=== PATIENT | male | born 1965 | race Caucasian/White ===

== ENCOUNTER 2020-04-11 11:08 | Outpatient (CLI) | payer BC, SELFPAY ==
--- NOTE | ~2020-04-11 | XR_ITS ---
EXAMINATION: XR chest 2V 04/11/2020 11:31 INDICATION: Asbestos exposure PROCEDURE: 2 view chest COMPARISON: No prior studies for comparison. FINDINGS: The lungs are clear. The cardiomediastinal silhouette is within normal limits. There are no pleural effusions. There is no pneumothorax suspected. IMPRESSION: 1: NO ACUTE CARDIOPULMONARY DISEASE. Reviewed, dictated and finalized at location A. LOADER HELPER
== END 2020-04-11 11:09 | disposition home or self-care (01) ==
PROVIDERS: PCP Family Medicine; Visit Provider Family Medicine
DX: Z77.090 Contact with and (suspected) exposure to asbestos (principal)
CPT/HCPCS: 71046

== ENCOUNTER 2021-04-10 10:08 | Outpatient (CLI) | payer BC, SELFPAY ==
--- NOTE | 2021-04-10 10:25 | ECG_ITS ---
Measurements Intervals [place] Rate: 64 P: 63 DE: 158 QRS: 43 QRSD: 113 T: 20 QT: 373 QTc: 387 Interpretive Statements SINUS RHYTHM INTRAVENTRICULAR CONDUCTION DELAY BORDERLINE ECG Electronically Signed On 04-10-2021 12:02:14 AGENT PRODUCER by Silvestre Day D.O.
== END 2021-04-10 10:09 | disposition home or self-care (01) ==
LOC: ANHLAB 10:10
PROVIDERS: PCP Family Medicine; Visit Provider Family Medicine
DX: I10 Essential (primary) hypertension (principal)
CPT/HCPCS: 93005

== ENCOUNTER 2021-08-02 08:24 | Outpatient (CLI) | payer BC, SELFPAY ==
--- NOTE | ~2021-08-02 | XR_ITS ---
EXAMINATION: XR chest 2V DATE: 08/02/2021 10:47 INDICATION: Shortness of breath. TECHNIQUE: Frontal and lateral views of the chest were obtained. COMPARISON: Chest 2 views 04/11/2020 FINDINGS: There is mild atelectasis in right lower lung zone. No pleural effusion or pneumothorax. Th e heart size is normal. IMPRESSION: 1. Mild atelectasis in right lower lung zone. Reviewed, dictated and finalized at location A.
--- NOTE | 2021-08-02 08:41 | ECHO_ITS ---
Patient Info Name: Murali Thompson Age: 56 years : 1965 Gender: Male Ht: 71 in Wt: 220 lbs BSA: 2.26 m2 HR: 74 bpm BP: 159 / 97 mmHg Technical Quality: Good Exam Date: 08/02/2021 9:07 AM Exam Location: [facility] Patient Status: Outpatient Admit Date: 08/02/2021 Staff Ordering Physician: Tristan Avalos MD Display Screen Fabricator: Shaneka Chang RDCS Attending Provider: Tristan Avalos MD Referring Physician: Robbie JIN; Exam Type: CA echo doppler color flow Study Info Indications - dyspnea Complete two-dimensional, color flow and Doppler transthoracic echocardiogram is performed. Summary 1. Complete two-dimensional, color flow and Doppler transthoracic echocardiogram is performed. 2. Left ventricular chamber dimension is normal. 3. Left ventricular systolic function is normal, estimated at 55-60%. 4. The left ventricular diastolic function is normal. 5. E/e' 8 is minimally elevated. 6. There is mild mitral valve regurgitation. 7. There is trace tricuspid valve regurgitation. 8. Mild pulmonary hypertension, estimated pulmonary arterial systolic pressure is 41 mmHg. Left Ventricle E/e' 8 is minimally elevated. Left ventricular chamber dimension is normal. Left ventricular systolic function is normal, estimated at 55-60%. The left ventricular diastolic function is normal. Right Ventricle Moderator band is normal variant. Right ventricular systolic function is normal and with normal TAPSE 2.4 cm. Right ventricular chamber dimension is normal. Left Atria Left atrial chamber dimension is normal. Right Atria Right atrial chamber dimension is normal. Aortic Valve The aortic valve is trileaflet. There is no aortic valve stenosis. There is no aortic valve regurgitation. Pulmonic Valve There is no pulmonic regurgitation. Mitral Valve There is no mitral valve stenosis. There is mild mitral valve regurgitation. Tricuspid Valve There is trace tricuspid valve regurgitation. Mild pulmonary hypertension, estimated pulmonary arterial systolic pressure is 41 mmHg. Pericardium/Pleural There is no pericardial effusion. Inferior Vena Cava Normal inferior vena cava with >50% collapse upon inspiration consistent with normal right atrial pressure, 5 mmHg. Aorta The aortic root size at the sinus of Valsalva is normal. Left Ventricular Outflow Tract Name Value Normal LVOT 2D LVOT Diameter 2.1 cm LVOT Doppler LVOT Peak Gradient 4 mmHg LVOT Mean Gradient 2 mmHg LVOT VTI 19 cm LVOT VTI/AV VTI Ratio 0.8 LVOT Stroke Volume 65 ml LVOT CO 14.4 l/min LVOT CI 6.4 l/min/m2 Pulmonic Valve Name Value Normal PV Doppler
--- NOTE | 2021-08-02 08:41 | EST_ITS ---
Patient Info Name: Murali Thompson Age: 56 years : 1965 Gender: Male Ht: 71 in Wt: 220 lbs BSA: 2.26 m2 Exam Date: 08/02/2021 10:12 AM Exam Location: [facility] Stress Patient Status: Outpatient Admit Date: 08/02/2021 Staff Ordering Physician: Tristan Avalos MD Attending Provider: Tristan Avalos MD Exercise Technologist: Radha La RDCS Exercise Physician: Silvestre Day DO Exam Type: CA stress test treadmill Study Info Indications R06.00 - Dyspnea, unspecified A treadmill exercise stress test was performed. Summary 1. 1. Negative Jayjay exercise stress test for ischemic ST changes by ECG criteria. 2. 2. Good functional capacity, achieving 12 METs of workload. 3. 3. Appropriate HR response to exercise. 4. 4. Appropriate HR recovery at 1 minute post exercise. 5. 5. No imaging with stress testing. 6. 6. Patient informed of the above results. Protocol: Jayjay Stress ECG Details Stage: REST Duration (min): 5 min : 5 sec Speed (mph): 0.0 Grade (%): 0 HR (bpm): 64 SBP (mmHg): 134 DBP (mmHg): 84 METS: --- Stage: REST Duration (min): 9 min : 29 sec Speed (mph): 0.0 Grade (%): 0 HR (bpm): 75 SBP (mmHg): 134 DBP (mmHg): 84 METS: --- Stage: STAGE 1 Duration (min): 1 min : 0 sec Speed (mph): 1.7 Grade (%): 10 HR (bpm): 96 SBP (mmHg): 134 DBP (mmHg): 84 METS: --- Stage: STAGE 1 Duration (min): 2 min : 0 sec Speed (mph): 1.7 Grade (%): 10 HR (bpm): 95 SBP (mmHg): 134 DBP (mmHg): 84 METS: --- Stage: STAGE 1 Duration (min): 3 min : 0 sec Speed (mph): 1.7 Grade (%): 10 HR (bpm): 99 SBP (mmHg): 181 DBP (mmHg): 70 METS: --- Stage: STAGE 2 Duration (min): 1 min : 0 sec Speed (mph): 2.5 Grade (%): 12 HR (bpm): 107 SBP (mmHg): 181 DBP (mmHg): 70 METS: --- Stage: STAGE 2 Duration (min): 2 min : 0 sec Speed (mph): 2.5 Grade (%): 12 HR (bpm): 110 SBP (mmHg): 160 DBP (mmHg): 84 METS: --- Stage: STAGE 2 Duration (min): 3 min : 0 sec Speed (mph): 2.5 Grade (%): 12 HR (bpm): 110 SBP (mmHg): 160 DBP (mmHg): 84 METS: --- Stage: STAGE 3 Duration (min): 1 min : 0 sec Speed (mph): 3.4 Grade (%): 14 HR (bpm): 123 SBP (mmHg): 156 DBP (mmHg): 81 METS: --- Stage: STAGE 3 Duration (min): 2 min : 0 sec Speed (mph): 3.4 Grade (%): 14 HR (bpm): 127 SBP (mmHg): 156 DBP (mmHg): 81 METS: --- Stage: STAGE 3 Duration (min): 3 min : 0 sec Speed (mph): 3.4 Grade (%): 14 HR (bpm): 132 SBP (mmHg): 179 DBP (mmHg): 79 METS: --- Stage: STAGE 4 Duration (min): 1 min : 0 sec Speed (mph): 4.2 Grade (%): 16 HR (bpm): 146 SBP (mmHg): 179 DBP (mmHg): 79 METS: --- Stage: STAGE 4 Duration (min): 1 min : 0 sec Speed (mph):
== END 2021-08-02 08:25 | disposition home or self-care (01) ==
PROVIDERS: PCP Family Medicine; Visit Provider Family Medicine
DX: R06.02 Shortness of breath (principal); R06.00 Dyspnea, unspecified; J98.11 Atelectasis; I08.3 Combined rheumatic disorders of mitral, aortic and tricuspid valves
CPT/HCPCS: 71046; 93017; 93306

== ENCOUNTER 2021-08-12 08:12 | Outpatient (CLI) | payer BC, SELFPAY ==
--- NOTE | 2021-08-12 15:01 | WPDPFTINT ---
PFT Procedure Performed PFT Procedure Performed Spirometry with Pre/Post Bronchodilator Plethysmography (Lung Vol) Diffusing Cap (DLCO) Flow Vol Loop PFT Interpretation This is a pulmonary function test with pre and post-bronchodilator spirometry, plethysmography and diffusing capacity. The test was performed and results interpreted in accordance with the 2019 and 2005 ATS/ERS Task Force guidelines respectively using the Global Lung Function Initiative-2012 reference equations. Patient demonstrated good effort and cooperation. Reproducibility criteria were met. The quality of the pre bronchodilator spirometry maneuver was Grade A and post bronchodilator spirometry maneuver was Grade A. Findings: Spirometry: The contour the inspiratory and expiratory flow tracing are normal. The pre bronchodilator FVC is 3.18 L, 66% predicted. The pre bronchodilator FEV1 is 2.51 L, 67% predicted. The pre bronchodilator FEV1: FVC ratio 79%. The post bronchodilator FVC is 3.16 L, representing 1% decrease. The post bronchodilator FEV1 is 2.61 L, representing a 4% increase. The post bronchodilator FEV1: FVC ratio is 83%. Plethysmography: The total lung capacity is 5.07, 72% predicted. The functional residual capacity is 2.47 L, 68% predicted. The residual volume is 1.89 L, 87% predicted. Diffusing capacity: The diffusing capacity unadjusted for hemoglobin and carboxyhemoglobin is 27.2, 93% predicted. The diffusing capacity adjusted for alveolar volume is 6.02, 138% predicted. Impression: There is a moderate restrictive ventilatory abnormality. The spirometry is normal without evidence of an obstructive abnormality. There is no significant improvement after inhaling a single dose of albuterol. The diffusing capacity unadjusted for hemoglobin and carboxyhemoglobin is normal and increased when adjusted for alveolar volume. There are no prior studies for comparison
== END 2021-08-12 08:13 | disposition home or self-care (01) ==
LOC: ANHPFT 08:13
PROVIDERS: PCP Family Medicine; Visit Provider Family Medicine
DX: R06.02 Shortness of breath (principal)
CPT/HCPCS: 94060; 94726; 94729

== ENCOUNTER 2021-10-18 12:34 | Outpatient (CLI) | payer BC, SELFPAY ==
--- NOTE | ~2021-10-18 | CT_ITS ---
EXAMINATION: CT diagnostic chest wo con DATE: 10/18/2021 13:02 INDICATION: R06.00 - Dyspnea, unspecified TECHNIQUE: Computed tomography (CT) of the chest was performed without intravenous contrast. Addition al 3D reconstructions utilizing coronal maximum intensity projection (MIP) were performed. Automated exposure control and iterative reconstruction technique were employed. The dose-length product was 31 5.67 mGy-cm. COMPARISON: None FINDINGS: Right basilar discoid atelectasis in the right middle and lower lobes. Lungs are otherwise clear. No pneumonia, pulmonary edema, pleural effusion or pneumothorax. Heart size is normal. No pericardial ef fusion. Thoracic aorta is normal in caliber. No pathologically enlarged thoracic lymphadenopathy. Mil d bilateral gynecomastia. A few scattered hepatic and splenic calcific lesions consistent with old gr anulomatous disease. Couple low-attenuation cysts in the left hepatic lobe. Dependently layering slud ge in the otherwise normal gallbladder. 18 degree upper thoracic levoscoliosis. Single sclerotic lesi on at T5. IMPRESSION: 1. Mild right basilar atelectasis. No acute cardiopulmonary disease. 2. Single sclerotic lesion at T5 which in the absence of known history of malignancy most likely repr esents a bone island. If there has been prior malignancy would consider bone scan for further evaluat ion. Reviewed, dictated and finalized at location B. IMPRESSION: 1. Mild right basilar atelectasis. No acute cardiopulmonary disease. 2. Single sclerotic lesion at T5 which in the absence of known history of malig laura most likely represents a bone island. If there has been prior malignancy would consider bone scan for further evaluation.
== END 2021-10-18 12:35 | disposition home or self-care (01) ==
PROVIDERS: PCP Family Medicine; Visit Provider Internal Medicine Pulmonary Disease
DX: R06.00 Dyspnea, unspecified (principal); J98.11 Atelectasis; M89.9 Disorder of bone, unspecified
CPT/HCPCS: 71250

== ENCOUNTER 2021-10-18 13:08 | Outpatient (CLI) | payer BC, SELFPAY ==
[2021-10-18 13:53] LABS: Basophils Percent Auto 0.7 % (0.2-1.2); Eosinophils Absolute Auto 0.1 K/mm3 (0-0.3); Eosinophils Percent Auto 2.1 % (0-4.4); Hematocrit 52.2 % (42.0-52.0); Hemoglobin 16.8 g/dL (14.0-18.0); Immature Granulocyte Absolute 0.02 K/mm3 (0.00-0.031); Immature Granulocyte Percent A 0.4 % (0-0.5); Lymphocytes Absolute Auto 1.58 K/mm3 (0.9-3.2); Lymphocytes Percent Auto 27.7 % (18.3-44.2); Mean Corpuscular HGB Conc 32.2 g/dl (32-36); Mean Corpuscular Hemoglobin 30.2 pg (26-34); Mean Corpuscular Volume 93.7 fl (80-100); Mean Platelet Volume 11.2 fl (7.4-10.4); Monocytes Absolute Auto 0.5 K/mm3 (0.1-0.6); Monocytes Percent Auto 9.5 % (2.6-8.5); Neutrophils Absolute Auto 3.4 K/mm3 (1.3-6.7); Neutrophils Percent Auto 59.6 % (45.5-73.1); Platelet Count Result 230 k/mm3 (150-375); Red Blood Count 5.57 M/mm3 (4.6-6.20); Red Cell Distribution Width 13.5 % (11.5-14.5); White Blood Count 5.7 K/mm3 (4.5-10.0)
== END 2021-10-18 13:09 | disposition home or self-care (01) ==
LOC: ANHLAB 13:09
PROVIDERS: PCP Family Medicine; Visit Provider Internal Medicine Pulmonary Disease
DX: R06.00 Dyspnea, unspecified (principal)
CPT/HCPCS: 36415; 85025

== ENCOUNTER 2021-11-01 08:33 | Outpatient (CLI) | payer BC, SELFPAY ==
--- NOTE | ~2021-11-01 | XR_ITS ---
XR sniff test without CXR2V 11/01/2021 08:59 Indication: Shortness of breath. Right diaphragm weakness. Procedure: Fluoroscopy of the diaphragm was performed during repetitive inspiration Comparison: Chest dated 08/02/2021 Findings: There is paradoxical upward motion of the right diaphragm during inspiration, consistent wi th diaphragmatic paralysis. Impression: 1: Abnormal paradoxical motion of the right diaphragm, consistent with diaphragmatic paralysis. Reviewed, dictated and finalized at location A. Impression: 1: Abnormal paradoxical motion of the right diaphragm, consistent with diaphrag matic paralysis.
== END 2021-11-01 08:34 | disposition home or self-care (01) ==
PROVIDERS: PCP Family Medicine; Visit Provider Internal Medicine Pulmonary Disease
DX: R06.02 Shortness of breath (principal); R91.8 Other nonspecific abnormal finding of lung field
CPT/HCPCS: 76000

== ENCOUNTER 2021-11-19 09:28 | Outpatient (CLI) | payer BC, SELFPAY ==
--- NOTE | ~2021-11-19 | MR_ITS ---
EXAMINATION: MR cervical spine wo/w con DATE: 11/19/2021 10:26 INDICATION: Cervical radiculopathy. Mild compression at C3-C5. TECHNIQUE: Magnetic resonance imaging (MRI) of the cervical spine was performed without and with 20 m L Multihance intravenous contrast. Sequences included axial PD-weighted FSE, sagittal T1-weighted SE, sagittal PD-weighted FS FSE, axial T1-weighted SE, coronal PD-weighted FS FSE, coronal T1-weighted S E, axial T1-weighted FS SE. Postcontrast sequences included axial T1-weighted FS SE, sagittal T1-wegi hted FS SE, and sagittal STIR FSE. COMPARISON: None FINDINGS: Draining of the normal cervical lordosis. Vertebral body heights are normal. Moderate disc height lo ss at C4-C5 and C5-C6. Mild disc height loss at C3-C4 and C6-C7. Degenerative fibrofatty endplate michela nges at C3-C4. Marrow signal is otherwise normal. On the sagittal images there is an annular fissure with small central disc extrusion resulting in mild central canal stenosis at T2-T3. Disc bulges and annular fissures at C3-C4 through C7-T1 which will be further detailed below. Cord signal intensity i s normal. Cervical soft tissues are unremarkable. No abnormally enhancing lesions identified. The fol lowing disc levels are specifically discussed: C2-C3: The disc does not extend beyond the endplate margin. There is mild left uncovertebral joint os teoarthritis. There is moderate bilateral facet joint osteoarthritis. There is no neural foraminal st enosis. There is no central canal stenosis. C3-C4: Left-sided predominant posterior disc osteophyte complex which indents the left ventral surfac e of the cord. There is right and severe left uncovertebral joint osteoarthritis. There is moderate r ight and mild to moderate left facet joint osteoarthritis. There is mild right and moderate left neur al foraminal stenosis. There is mild central canal stenosis. C4-C5: Left-sided predominant posterior disc osteophyte complex which indents the left ventral surfac e of the cord. There is severe bilateral uncovertebral joint osteoarthritis. There is mild right and moderate left facet joint osteoarthritis. There is mild right and moderate left neural foraminal sten osis. There is mild central canal stenosis. C5-C6: Left side predominant posterior disc osteophyte complex slightly flattens the ventral surface of the cord. There is moderate right and severe left uncovertebral joint osteoarthritis. There is mil d bilateral facet joint osteoarthritis. There is mild right and mild to moderate left neural foramina l stenosis. There is mild central canal stenosis. C6-C7: Disc is bulging with annular fissure and small right paracentral disc extrusion with disc mate rial extending 3 mm cephalad to the level of the inferior endplate of C6. There is moderate right and severe left uncovertebral joint osteoarthritis. There is mild bilateral facet joint osteoarthritis. There is mild right and moderate to severe left neural foraminal stenosis. There is mild central abigail l stenosis. C7-T1: Disc is mildly bulging with superimposed annular fissure and right paracentral to foraminal zo ne disc protrusion. There is mild bilateral uncovertebral joint osteoarthritis. There is mild right a nd moderate left facet joint osteoarthritis. There is mild right and mild to moderate left neural for aminal stenosis. There is mild central canal stenosis. IMPRESSION: 1. Moderate cervical spondylosis. Reviewed, dictated and finalized at location A.
[2021-11-19 09:59] LABS: Estimated Glomerular Filt Rate > 60
== END 2021-11-19 09:29 | disposition home or self-care (01) ==
PROVIDERS: PCP Family Medicine; Visit Provider Internal Medicine Pulmonary Disease
DX: M47.892 Other spondylosis, cervical region (principal)
CPT/HCPCS: 72156; A9577

== ENCOUNTER 2021-12-24 13:35 | Outpatient (CLI) | payer BC, SELFPAY ==
--- NOTE | 2021-12-30 23:59 | WPDHOMESLEEP ---
Sleep Study - Home Unattended Date of Study: 12/24/21 Ordering Provider: Robert Pete MD Interpreting Provider: Debra Mahan, DO Home Sleep Study Type: Apnea Link Air Height: 1.78 m Weight: 99.79 kg Body Mass Index: 31.5 Neck Circumference (inches): 16 [place]: 1 Reason for Sleep Study Mild pulmonary hypertension and dyspnea with exertion Sleep History The patient is a 56-year-old male with pulmonary hypertension and dyspnea on exertion that had a sleep study ordered by his assistant men's soccer coach for evaluation of sleep apnea. 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 He denies awakening from sleep short of breath. He denies awakening at night with heartburn, belching or cough. He denies snoring. He denies having trouble sleeping when he has a cold. He denies waking up gasping for air throughout the night. He denies having breathing problems at night observed by himself or others. He denies sweating excessively at night. He denies having heart palpitations or irregular heartbeats during the night. He denies falling asleep during the day and while driving. He denies sleep paralysis, cataplexy and hypnagogic / hypnopompic hallucinations. He denies having trouble at school or work due to sleepiness. He denies feeling afraid of going to sleep. He denies having nightmares. He denies having thoughts racing through his mind. He denies feeling sad, depressed or anxious. He denies noticing parts of his body jerk. He denies kicking during the night. He denies having crawling and aching feelings in his legs as well as leg pain during the night. He denies grinding his teeth during sleep and awakening with morning jaw pain. He is frequently bothered by pain during the day but rarely awakened by pain during the night. He frequently wakes up feeling stiff in the morning. He rarely wakes up with sore or achy muscles. He frequently wakes up with pain in the neck, spine and other joints. He goes to bed at 9:30 p.m. on weekdays and at 10:30 p.m. on the weekends. It takes him 15 minutes to fall asleep. He wakes up 2-4 times throughout the night to get a drink. He is able to fall back asleep within 5 minutes. He wakes up at 6:00 a.m. on weekdays and at 8:30 a.m. on the weekends. He typically gets 8 hours of sleep per night. He will stay in bed for 5 minutes after waking up in the morning. He currently lives with his . He does not consume any caffeinated beverages within 2 hours of bedtime. He does not engage in physical exercise before bedtime. He will watch television before falling asleep. He denies taking naps in the afternoon or the evening. He drinks 2 cups of caffeinated beverage per day. He drinks 1 alcoholic beverage per day. He denies tobacco and recreational drug use. FORMERLY [facility] Past Medical History Medical History Asbestos exposure Dyspnea on exertion echocardiogram on 08/02/2021 with mild mitral valve regurgitation and trace tricuspid valve regurgitation with ejection fraction 55-60% with mild pulmonary hypertension. Exercise stress test on 08/02/2021 was negative for ischemia. Encounter for prostate cancer screening Encounter for wellness examination in adult Otitis externa Pulmonary hypertension (~08/02/21) mild pulmonary hypertension on echocardiogram 08/02/2021 with pressure of 45. Seasonal allergic rhinitis Shortness of breath chest x-ray 08/02/21 with mild atelectasis right lower lobe, otherwise normal. Pulmonary function study 08/12/2021 with moderate restrictive airway disease with no improvement with bronchodilator. Family History Family History Father Family history of lung cancer Family history of malignant neoplasm, Onset Age: 52 Grandparent Cerebrovascular accident Family history of chronic obstructive pulmonary disease, Onset Age: 70 Mother Family histo
[2021-12-31 00:12] VITALS: BMI 31.5
--- NOTE | 2022-05-15 15:05 | SLEEP ---
pt was started on O2 after test. pt sent O2 back to dme he stated he was not feeling any significant positive changes with his sleep
== END 2021-12-25 11:41 | disposition home or self-care (01) ==
LOC: ANHCSM 13:36
PROVIDERS: PCP Family Medicine; Visit Provider Internal Medicine Pulmonary Disease
DX: G47.33 Obstructive sleep apnea (adult) (pediatric) (principal); G47.10 Hypersomnia, unspecified
CPT/HCPCS: 95806

== ENCOUNTER 2022-07-08 08:03 | Outpatient (CLI) | payer BC, SELFPAY ==
--- NOTE | ~2022-07-08 | XR_ITS ---
Clinical Indication: Diaphragmatic paralysis PA and lateral views of the chest: Comparison: 08/02/2021 Findings: The lungs are clear, without evidence of focal consolidation or pleural effusion. Stable el evation of the right hemidiaphragm. Cardiomediastinal silhouette is within normal limits. Bones and s oft tissues are unremarkable. Impression: Clear lungs. Stable elevation of the right hemidiaphragm. Reviewed, dictated and finalized at location M. TACKER Impression: Clear lungs. Stable elevation of the right hemidiaphragm.
--- NOTE | 2022-07-08 20:14 | WPDPFTINT ---
PFT Procedure Performed PFT Procedure Performed Spirometry with Pre/Post Bronchodilator Plethysmography (Lung Vol) Diffusing Cap (DLCO) Flow Vol Loop PFT Interpretation DOS: 07/08/2022 REQUESTING: Dr. Robert Pete REASON FOR TESTING: diaphragm dysfunction, dyspnea on exertion PULMONARY FUNCTION TESTS Results are reliable and reproducible. Spirometry: Pre bronchodilator FVC is 3.33 L, 70% predicted, decreased. Pre bronchodilator FEV1 is 2.57 L, 69% predicted, decreased. FEV1/FVC ratio is 77% which is normal. After bronchodilator administration, there is a 1% increase in the FVC and 7% increase in the FEV1. This is a non statistically significant increase in flows. Lung volumes: Total lung capacity is 5.11 L, 73% predicted, consistent with a mild restrictive pattern. The residual volume is 1.58 L, 73% predicted, within the normal range. RV/TLC is 31%, no evidence of air trapping. Raw is 123%, normal. Diffusion: DLCO is 28.7, 99% predicted, normal. DLCO/VA is 6.22, 143%, over corrected for alveolar volume. Flow volume loop: The flow volume loop is consistent with restriction. IMPRESSION: This study shows a mild restrictive ventilatory impairment, normal diffusion, no change with bronchodilator. Compared to prior study 08/12/2021, values are similar. Total lung capacity now is 73%, previously 72%. Spirometry was similar. The FEV1 was 67%, now 69%. FVC was 66%, now is 70%. Similar diffusion values. Lissette Brooks MD
== END 2022-07-08 08:04 | disposition home or self-care (01) ==
PROVIDERS: PCP Family Medicine; Visit Provider Internal Medicine Pulmonary Disease
DX: J98.6 Disorders of diaphragm (principal); R94.2 Abnormal results of pulmonary function studies
CPT/HCPCS: 71046; 94060; 94726; 94729

== ENCOUNTER 2022-11-03 07:38 | Outpatient (CLI) | payer BC, SELFPAY ==
--- NOTE | 2022-11-03 07:47 | ECHO_ITS ---
Patient Info Name: Murali Thompson Age: 57 years : 1965 Gender: Male Ht: 70 in Wt: 225 lbs BSA: 2.28 m2 HR: 68 bpm BP: 141 / 90 mmHg Technical Quality: Good Exam Date: 11/03/2022 8:03 AM Exam Location: [facility] Patient Status: Outpatient Admit Date: 11/03/2022 Staff Ordering Physician: Robert Pete MD Planner Chief: Radha La RDCS Attending Provider: Robert Pete MD Referring Physician: Juan R BUSTAMANTE; Exam Type: CA echo doppler color flow Study Info Indications R06.02 - Shortness of breath Complete two-dimensional, color flow and Doppler transthoracic echocardiogram is performed. Summary 1. Complete two-dimensional, color flow and Doppler transthoracic echocardiogram is performed. 2. Left ventricular chamber dimension is mildly enlarged. 3. Left ventricular systolic function is preserved, estimated at 50-55%. 4. The left ventricular diastolic function is normal. 5. E/e' 6 is not elevated. 6. Global longitudinal strain is abnormal at -13.6%. 7. Left atrial chamber dimension is mildly enlarged. 8. No pulmonary hypertension, estimated pulmonary arterial systolic pressure is 22 mmHg. Left Ventricle Left ventricular systolic function is preserved, estimated at 50-55%. E/e' 6 is not elevated. Global longitudinal strain is abnormal at -13.6%. Left ventricular chamber dimension is mildly enlarged. The left ventricular diastolic function is normal. Right Ventricle Right ventricular systolic function is normal and with normal TAPSE 2.4 cm. Right ventricular chamber dimension is normal. Left Atria Left atrial chamber dimension is mildly enlarged. Right Atria Right atrial chamber dimension is normal. Aortic Valve The aortic valve is trileaflet. There is no aortic valve stenosis. There is no aortic valve regurgitation. Pulmonic Valve There is no pulmonic regurgitation. Mitral Valve There is no mitral valve stenosis. There is no mitral valve regurgitation. Tricuspid Valve There is no tricuspid valve regurgitation. No pulmonary hypertension, estimated pulmonary arterial systolic pressure is 22 mmHg. Pericardium/Pleural There is no pericardial effusion. Inferior Vena Cava Normal inferior vena cava with >50% collapse upon inspiration consistent with normal right atrial pressure, 5 mmHg. Aorta The aortic root size at the sinus of Valsalva is normal. Left Ventricular Outflow Tract Name Value Normal LVOT 2D LVOT Diameter 2.0 cm LVOT Doppler LVOT Peak Gradient 3 mmHg LVOT Mean Gradient 2 mmHg LVOT VTI 20 cm LVOT VTI/AV VTI Ratio 0.9 LVOT Stroke Volume 63 ml LVOT CO 4.5 l/min LVOT CI 2.0 l/min/m2 Pulmonic Valve Name Value Normal RVOT Doppler RVOT Peak Gradient 1 mmHg
== END 2022-11-03 07:39 | disposition home or self-care (01) ==
PROVIDERS: PCP Family Medicine; Visit Provider Internal Medicine Pulmonary Disease
DX: R06.02 Shortness of breath (principal); I27.20 Pulmonary hypertension, unspecified
CPT/HCPCS: 93306

== ENCOUNTER 2023-07-06 11:57 | Outpatient (CLI) | payer BC, SELFPAY ==
--- NOTE | ~2023-07-06 | XR_ITS ---
Clinical Indication: Preop testing PA and lateral views of the chest: Comparison: 07/08/2022 Findings: The lungs are clear, without evidence of focal consolidation or pleural effusion. Cardiome diastinal silhouette is within normal limits. Bones and soft tissues are unremarkable. Impression: Normal chest. Reviewed, dictated and finalized at [facility]. EN OPERATOR Impression: Normal chest.
--- NOTE | 2023-07-06 12:30 | ECG_ITS ---
Measurements Intervals [place] Rate: 73 P: 55 [place]: 164 QRS: 43 QRSD: 91 T: 10 QT: 329 QTc: 363 Interpretive Statements SINUS RHYTHM NORMAL ECG COMPARED TO ECG 04/10/2021 10:31:51 NO SIGNIFICANT CHANGES Electronically Signed On 07-06-2023 18:31:21 HISTOLOGIC AIDE by Franky Rowe M.D.
[2023-07-06 13:13] LABS: Basophils Percent Auto 0.5 % (0.2-1.2); Eosinophils Absolute Auto 0.1 K/mm3 (0-0.3); Eosinophils Percent Auto 1.9 % (0-4.4); Hematocrit 50.3 % (42.0-52.0); Hemoglobin 16.7 g/dL (14.0-18.0); Immature Granulocyte Absolute 0.01 K/mm3 (0.00-0.031); Immature Granulocyte Percent A 0.2 % (0-0.5); Lymphocytes Absolute Auto 1.28 K/mm3 (0.9-3.2); Lymphocytes Percent Auto 20.6 % (18.3-44.2); Mean Corpuscular HGB Conc 33.2 g/dl (32-36); Mean Corpuscular Hemoglobin 30.9 pg (26-34); Mean Corpuscular Volume 93.1 fl (80-100); Mean Platelet Volume 11.5 fl (7.4-10.4); Monocytes Absolute Auto 0.5 K/mm3 (0.1-0.6); Monocytes Percent Auto 8.4 % (2.6-8.5); Neutrophils Absolute Auto 4.3 K/mm3 (1.3-6.7); Neutrophils Percent Auto 68.4 % (45.5-73.1); Platelet Count Result 213 k/mm3 (150-375); Red Cell Distribution Width 12.7 % (11.5-14.5); White Blood Count 6.2 K/mm3 (4.5-10.0)
[2023-07-06 13:19] LABS: Alanine Aminotransferase 21 U/L (6-50); Albumin Level 4.2 g/dL (3.5-5.1); Alkaline Phosphatase 55 U/L (38-126); Anion Gap 5 mmol/L (8-16); Aspartate Amino Transferase 25 U/L (17-59); Bilirubin,Total 0.7 mg/dL (0.2-1.3); Blood Urea Nitrogen 16 mg/dL (9-20); Carbon Dioxide 28 mmol/L (22-30); Chloride 105 mmol/L (98-107); Estimated Glomerular Filt Rate > 60; Glucose 86 mg/dL (65-110); Potassium 4.6 mmol/L (3.4-5.0); Sodium 138 mmol/L (137-145)
[2023-07-06 13:23] LABS: Partial Thromboplastin Time 28.6 SECONDS (22.3-36.8)
[2023-07-06 14:01] LABS: Vitamin D 25 Hydroxy 66.9 ng/mL
== END 2023-07-06 11:58 | disposition home or self-care (01) ==
LOC: ANHLAB 11:59
PROVIDERS: PCP Family Medicine
DX: Z01.818 Encounter for other preprocedural examination (principal)
CPT/HCPCS: 36415; 71046; 80053; 82306; 85025; 85610; 85730; 93005